=== PATIENT | female | born 1935 | race Caucasian/White ===

== ENCOUNTER → 2019-02-03 | Outpatient (CLI) | payer OTHER ==
[~2019-02-03] MED LIST: AMLO2.5T4 PO; ASCO1TAB43 PO; ASCO500T9 PO; ATOR20TA65 PO; CHOL100040 PO; DOCU240C25 PO; GENTOS OD; HYDR12.54 PO; IOHEXOL-350 75 ML VIAL IV ONE; LOSA1TAB54 PO; METF-444 PO; METO50TA18 PO; ONDA8TAB11 PO; POTA10TA14 PO; RIVA15TA PO; SENN-265 PO; SENNOSIDES PO; SIME125C92 PO; SUCR1TAB2 PO; VIT1CAPS47 PO; [UNRECOGNIZED DRUG - OTHER] PO
== END | disposition home or self-care (01) ==
LOC: RAH 07:40
PROVIDERS: ATTEND Internal Medicine Hematology & Oncology
DX: K57.30 Diverticulosis of large intestine without perforation or abscess without bleeding (principal); N94.89 Other specified conditions associated with female genital organs and menstrual cycle; I70.0 Atherosclerosis of aorta; Z90.710 Acquired absence of both cervix and uterus
CPT/HCPCS: 74178; Q9967

== ENCOUNTER 2019-06-21 10:15 | Day surgery (SDC) | payer OTHER ==
[~2019-06-21 10:15] MED LIST changes: -IOHEXOL-350 75 ML VIAL IV ONE
[2019-06-21 11:00] VITALS: BP 109/57
[2019-06-21] MEDS ORDERED: SODIUM CHLORIDE 0.9% 1000ML 1,000 ML IV ONE (12:37)
[2019-06-21 14:00] VITALS: BP 123/74
--- NOTE | 2019-06-21 14:00 | NUR ---
REPORT RECEIVED FROM DANYEL YO, ON PT TRANSFUSION OF BLOOD. PT WITH STABLE VS. NO PAIN AT IV SITE. WITH DOING WELL. FAMILY AT BEDSIDE. Addendum: 06/21/19 at 1446 by KENDALL ROGERS RN RN Amended: Links added.
[2019-06-21 14:58] VITALS: BP 120/57
--- NOTE | 2019-06-21 15:11 | NUR ---
TRANSFUSION COMPLETED. NO SIGNS OF REACTION. FAMILY WITH PT. INSTRUCTIONS GIVEN TO PT. PT DISCHARGED HOME. Addendum: 06/21/19 at 1512 by KENDALL ROGERS RN RN Amended: Links added.
== END 2019-06-21 15:15 | disposition home or self-care (01) ==
LOC: DAH 10:15
PROVIDERS: ATTEND Internal Medicine Hematology & Oncology
DX: D64.9 Anemia, unspecified (principal); C56.2 Malignant neoplasm of left ovary; I12.9 Hypertensive chronic kidney disease with stage 1 through stage 4 chronic kidney disease, or unspecified chronic kidney disease; E11.22 Type 2 diabetes mellitus with diabetic chronic kidney disease; N18.3 Chronic kidney disease, stage 3 (moderate); E78.5 Hyperlipidemia, unspecified; Z91.018 Allergy to other foods; Z98.890 Other specified postprocedural states; Z79.899 Other long term (current) drug therapy; Z82.3 Family history of stroke; Z82.49 Family history of ischemic heart disease and other diseases of the circulatory system; Z83.3 Family history of diabetes mellitus
CPT/HCPCS: 36430; 82948; A4215; A4216; A4221; A4223; A4606; A4663; J7030; P9016; 36415; 86850; 86900; 86901; 86922

== ENCOUNTER 2019-06-22 08:28 | Day surgery (SDC) | payer OTHER ==
[2019-06-22 09:00] VITALS: BP 131/61
[2019-06-22 09:15] LABS: HEMATOCRIT 26.7 % (36-48)
[2019-06-22] MEDS ORDERED: SODIUM CHLORIDE 0.9% 1000ML 1,000 ML IV ONE (12:20)
[2019-06-22 14:24] LABS: HEMATOCRIT 27.4 % (36-48)
== END 2019-06-22 14:30 | disposition home or self-care (01) ==
LOC: DAH 08:28
PROVIDERS: ATTEND Internal Medicine Hematology & Oncology
DX: D63.1 Anemia in chronic kidney disease (principal); I12.9 Hypertensive chronic kidney disease with stage 1 through stage 4 chronic kidney disease, or unspecified chronic kidney disease; E11.22 Type 2 diabetes mellitus with diabetic chronic kidney disease; N18.3 Chronic kidney disease, stage 3 (moderate); E78.5 Hyperlipidemia, unspecified; Z82.49 Family history of ischemic heart disease and other diseases of the circulatory system; Z85.43 Personal history of malignant neoplasm of ovary; Z85.828 Personal history of other malignant neoplasm of skin; Z91.018 Allergy to other foods; Z79.899 Other long term (current) drug therapy
CPT/HCPCS: 36415 ×2; 36430; 82948; 85014 ×3; 85018 ×3; 86850; 86900; 86901; 86922 ×2; A4215; A4221; A4606; A4663; J7030; P9016 ×2

== ENCOUNTER 2019-07-03 09:03 | Day surgery (SDC) | payer OTHER ==
[~2019-07-03] VITALS: Ht 154.9 cm; Wt 55.8 kg
[~2019-07-03 09:03] MED LIST changes: -ASCO1TAB43 PO; -ASCO500T9 PO; -CHOL100040 PO; -DOCU240C25 PO; -GENTOS OD; -HYDR12.54 PO; -POTA10TA14 PO; -RIVA15TA PO; -SENNOSIDES PO; +SODIUM CHLORIDE 0.9% 1000ML 1,000 ML IV ONE; -SUCR1TAB2 PO; -VIT1CAPS47 PO; -[UNRECOGNIZED DRUG - OTHER] PO
[2019-07-03 10:03] VITALS: BP 107/51
[2019-07-03] MEDS ORDERED: GABA-531 PO (10:39)
[2019-07-03] MEDS ORDERED: DEXL60CA3 PO (10:39)
[2019-07-03] MEDS ORDERED: OMEP40CA13 PO (10:39)
[2019-07-03 12:45] VITALS: BP 117/64
[2019-07-03 12:50] VITALS: BP 130/60
[2019-07-03 12:55] VITALS: BP 133/71
[2019-07-03 13:00] VITALS: BP 133/71
== END 2019-07-03 13:15 | disposition home or self-care (01) ==
LOC: DAH 09:03 → ENDO 09:03
PROVIDERS: ATTEND Internal Medicine Gastroenterology
DX: K29.50 Unspecified chronic gastritis without bleeding (principal); K27.9 Peptic ulcer, site unspecified, unspecified as acute or chronic, without hemorrhage or perforation; K44.9 Diaphragmatic hernia without obstruction or gangrene; K31.89 Other diseases of stomach and duodenum; K92.1 Melena; D64.9 Anemia, unspecified; E11.22 Type 2 diabetes mellitus with diabetic chronic kidney disease; I12.9 Hypertensive chronic kidney disease with stage 1 through stage 4 chronic kidney disease, or unspecified chronic kidney disease; N18.3 Chronic kidney disease, stage 3 (moderate); C56.9 Malignant neoplasm of unspecified ovary; E78.5 Hyperlipidemia, unspecified; M19.90 Unspecified osteoarthritis, unspecified site; Z86.73 Personal history of transient ischemic attack (TIA), and cerebral infarction without residual deficits; Z90.710 Acquired absence of both cervix and uterus; Z98.890 Other specified postprocedural states; Z79.84 Long term (current) use of oral hypoglycemic drugs
CPT/HCPCS: 43239; 82948 ×2; 88305; A4215; A4221; A4222; A4223; A4606; A4620; A4663; J7030

== ENCOUNTER → 2019-07-20 | Outpatient (CLI) | payer OTHER ==
[~2019-07-20] MED LIST changes: +DEXL60CA3 PO; +GABA-531 PO; +OMEP40CA13 PO; -SENN-265 PO; -SIME125C92 PO; -SODIUM CHLORIDE 0.9% 1000ML 1,000 ML IV ONE
== END | disposition home or self-care (01) ==
LOC: SHCH 09:19
PROVIDERS: ATTEND Internal Medicine Cardiovascular Disease
DX: I10 Essential (primary) hypertension (principal); E11.9 Type 2 diabetes mellitus without complications; Z90.710 Acquired absence of both cervix and uterus; Z90.722 Acquired absence of ovaries, bilateral; Z98.890 Other specified postprocedural states
CPT/HCPCS: 93306

== ENCOUNTER → 2019-07-24 | Outpatient (CLI) | payer OTHER ==
[~2019-07-24] VITALS: Ht 154.9 cm; Wt 57.2 kg
[~2019-07-24] MED LIST changes: +AMINOPHYLLINE 250MG/10 ML VIAL IV SCH; +REGADENOSON 0.4 MG/5 ML PF SYG IVP SCH
[2019-07-24 11:29] VITALS: BP 97/53
[2019-07-24 11:32] VITALS: BP 98/47
--- NOTE | 2019-07-24 12:37 | NUR ---
AT 1129 AMINOPHYLLINE 25MG WAS GIVEN IV PUSH OVER 60 SECONDS FOR SEVERE NAUSEA, CHEST PAIN OF 8 AND JAW PAIN POST LEXISCAN. SYMPTOMS HAD COMPLETELY RESOLVED, PER PT REPORT, APPROXIMATELY 2 MIN POST ADMINISTRATION
== END | disposition home or self-care (01) ==
LOC: SHCH 09:03
PROVIDERS: ATTEND Internal Medicine Cardiovascular Disease
DX: R06.00 Dyspnea, unspecified (principal)
CPT/HCPCS: 78452; 93017; 96374; A9500 ×2; J2785; J0280

== ENCOUNTER 2019-08-29 08:24 | Emergency (ER) | payer OTHER ==
[~2019-08-29 08:24] MED LIST changes: -AMINOPHYLLINE 250MG/10 ML VIAL IV SCH; -REGADENOSON 0.4 MG/5 ML PF SYG IVP SCH
[2019-08-29] MEDS ORDERED: ALBUMIN (HUMAN) 25% 100 ML IV ONE (09:08)
[2019-08-29] MEDS ORDERED: SODIUM CHLORIDE 0.9% 500ML 500 ML IV ONE (09:09)
[2019-08-29 09:10] LABS: BASOPHILS % (AUTO) 0.8 % (0.0-5.0); EOSINOPHILS % (AUTO) 5.7 % (0.0-8.0); HEMATOCRIT 27.8 % (36-48); MEAN CORPUSCULAR HGB CONC 30.9 g/dL (32.0-36.0); MEAN CORPUSCULAR VOLUME 100.4 fL (79-99); MONOCYTES % (AUTO) 7.6 % (3.0-13.0); NEUTROPHILS % (AUTO) 77.4 % (40.0-77.0); PLATELET COUNT (AUTO) 393 K/uL (130-400); RED BLOOD CELL COUNT(AUTO) 2.77 MIL/uL (4.00-5.50); RED CELL DISTRIBUTION WIDTH 21.6 % (11.0-15.5); WHITE BLOOD COUNT (AUTO) 7.4 K/uL (4.8-10.8)
[2019-08-29 09:23] LABS: CREATININE 1.4 mg/dL (0.5-1.5); POTASSIUM 4.8 mmol/L (3.5-5.1)
[2019-08-29 09:27] LABS: ALBUMIN 3.1 g/dL (3.5-5.0); BILIRUBIN,TOTAL 0.4 mg/dL (0.2-1.0); TOTAL PROTEIN, SERUM 6.7 g/dL (6.0-8.3)
[2019-08-29 09:33] LABS: INR 1.02 (0.85-1.15); PARTIAL THROMBOPLASTIN TIME 29.9 SEC (26.3-35.5); PROTHROMBIN TIME 10.7 SEC (9.6-11.6)
[2019-08-29] MEDS ORDERED: IOHEXOL-350 75 ML VIAL IV ONE (10:14)
== END 2019-08-29 12:07 | disposition home or self-care (01) ==
LOC: EDH 08:24
DX: R18.8 Other ascites (principal); R10.31 Right lower quadrant pain; I10 Essential (primary) hypertension; E11.9 Type 2 diabetes mellitus without complications
CPT/HCPCS: 36415; 74177; 80053; 85025; 85610; 85730; 96365; 99285; J7040; P9046; Q9967

== ENCOUNTER 2019-08-30 09:16 | Emergency (ER) | payer OTHER ==
[2019-08-30 10:17] LABS: BASOPHILS % (AUTO) 0.6 % (0.0-5.0); EOSINOPHILS % (AUTO) 4.8 % (0.0-8.0); HEMATOCRIT 29.5 % (36-48); LYMPHOCYTES % (AUTO) 7.2 % (21.0-51.0); MEAN CORPUSCULAR HEMOGLOBIN 31.3 pg (27.0-33.0); MEAN CORPUSCULAR HGB CONC 31.2 g/dL (32.0-36.0); MEAN CORPUSCULAR VOLUME 100.3 fL (79-99); MONOCYTES % (AUTO) 5.9 % (3.0-13.0); NEUTROPHILS % (AUTO) 81.2 % (40.0-77.0); NUCLEATED RED BLOOD CELLS 0.3 % (0.0-0.19); PLATELET COUNT (AUTO) 424 K/uL (130-400); RED BLOOD CELL COUNT(AUTO) 2.94 MIL/uL (4.00-5.50); RED CELL DISTRIBUTION WIDTH 21.4 % (11.0-15.5); WHITE BLOOD COUNT (AUTO) 7.9 K/uL (4.8-10.8)
[2019-08-30 10:25] LABS: CREATININE 1.2 mg/dL (0.5-1.5)
[2019-08-30 10:30] LABS: ALBUMIN 3.6 g/dL (3.5-5.0); BILIRUBIN,TOTAL 0.6 mg/dL (0.2-1.0); INR 1.03 (0.85-1.15); PARTIAL THROMBOPLASTIN TIME 30.8 SEC (26.3-35.5); PROTHROMBIN TIME 10.8 SEC (9.6-11.6); TOTAL PROTEIN, SERUM 7.2 g/dL (6.0-8.3)
--- NOTE | 2019-08-30 12:45 | NUR ---
U/S GD PARACENTESIS PROCEDURE PERFORMED BY DR Ophelia BOJORQUEZ. PUNCTURE SITE RIGHT LOWER QUADRANT. PATIENT TOLERATED PROCEDURE WELL. TOTAL REMOVED 3 LITERS OF CLEAR YELLOW FLUID. SPECIMEN SENT TO LAB. REPORT GVIE TO Domi SHAW RN AND PATIENT TRANSPORTED TO ED 17.
[2019-08-30 15:53] LABS: APPEARANCE BODY FLUID SLIGHTLY CLOUDY (CLEAR); COLOR,BODY FLUID YELLOW (LT YELLOW); SPECIMENTYPE,BODY FLUID ASCITES; TOTAL VOLUME,BODY FLUID 3000 mL
[2019-08-30 15:54] LABS: BODY FLUID RBC 878 /cu. mm.; BODY FLUID WBC 203 /cu. mm.
[2019-08-30 16:53] LABS: BF EOSINOPHIL 7 %; BF LYMPHOCYTE 17 %; BF MESOTHELIAL 38 %; BF MONOCYTE 22 %
== END 2019-08-30 14:37 | disposition home or self-care (01) ==
LOC: EDH 09:16
DX: R18.8 Other ascites (principal); E11.9 Type 2 diabetes mellitus without complications; I10 Essential (primary) hypertension; Z90.710 Acquired absence of both cervix and uterus
CPT/HCPCS: 36415; 49083; 80053; 85025; 85610; 85730; 87071; 87205; 88108; 88305; 89051; 96365; 99285; A4215

== ENCOUNTER → 2019-10-02 | Outpatient (CLI) | payer OTHER ==
[~2019-10-02] MED LIST changes: +ALBUMIN (HUMAN) 25% 100 ML IV SCH; -ONDA8TAB11 PO; +ONDA8TAB65 PO
[2019-10-02 10:40] LABS: PARTIAL THROMBOPLASTIN TIME 29.3 SEC (26.3-35.5); PROTHROMBIN TIME 10.5 SEC (9.6-11.6)
--- NOTE | 2019-10-02 11:20 | NUR ---
U/S GD PARACENTESIS PROCEDURE PERFORMED BY DR. MCLAUGHLIN. PUNCTURE SITE RIGHT LOWER QUADRANT OF ABDOMEN AND PATIENT TOLERATED PROCEDURE WELL. TOTAL REMOVED 1.2 LITERS OF CLOUDY STRAW COLORED ASCITES FLUID. END OF PROCEDURE AT 1130. CATHETER REMOVED AND DRESSING APPLIED. NO BLEEDING NOTED. PT DID NOT MEET [facility] ALBUMIN PROTOCOL. DISCHARGE INSTRUCTIONS GIVEN TO PATIENT. PATIENT VERBALIZED UNDERSTANDING. PT DISCHARGED AMBULATORY, STABLE, AAO X3 WITH NO C/O PAIN. SPECIMEN SENT TO LAB.
[2019-10-02 14:15] LABS: SPECIMENTYPE,BODY FLUID ASCITES
[2019-10-02 14:16] LABS: APPEARANCE BODY FLUID SLIGHTLY CLOUDY (CLEAR); BODY FLUID RBC 1733 /cu. mm.; BODY FLUID WBC 613 /cu. mm.; COLOR,BODY FLUID YELLOW (LT YELLOW); TOTAL VOLUME,BODY FLUID 1200 mL
[2019-10-02 14:33] LABS: BF EOSINOPHIL 2 %; BF LYMPHOCYTE 25 %; BF MESOTHELIAL 34 %; BF MONOCYTE 9 %; BF OTHER CELLS 20
== END | disposition home or self-care (01) ==
LOC: RAH 09:22
PROVIDERS: ATTEND Internal Medicine Hematology & Oncology
DX: R18.8 Other ascites (principal); R06.02 Shortness of breath; Z79.899 Other long term (current) drug therapy; Z82.49 Family history of ischemic heart disease and other diseases of the circulatory system; Z72.89 Other problems related to lifestyle; Z83.3 Family history of diabetes mellitus; Z82.5 Family history of asthma and other chronic lower respiratory diseases; Z82.3 Family history of stroke
CPT/HCPCS: 36415; 49083; 85610; 85730; 87071; 87205; 89051; A4215

== ENCOUNTER 2019-10-24 13:12 | Observation (INO) | payer OTHER ==
[~2019-10-24] VITALS: Ht 154.9 cm; Wt 54.8 kg
[~2019-10-24 13:12] MED LIST changes: -ALBUMIN (HUMAN) 25% 100 ML IV SCH
[2019-10-24 13:41] LABS: BASOPHILS % (AUTO) 0.7 % (0.0-5.0); EOSINOPHILS % (AUTO) 4.6 % (0.0-8.0); HEMATOCRIT 40.4 % (36-48); LYMPHOCYTES % (AUTO) 12.3 % (21.0-51.0); MEAN CORPUSCULAR HEMOGLOBIN 29.1 pg (27.0-33.0); MEAN CORPUSCULAR HGB CONC 30.2 g/dL (32.0-36.0); MEAN CORPUSCULAR VOLUME 96.4 fL (79-99); MONOCYTES % (AUTO) 6.9 % (3.0-13.0); NEUTROPHILS % (AUTO) 74.9 % (40.0-77.0); PLATELET COUNT (AUTO) 471 K/uL (130-400); RED BLOOD CELL COUNT(AUTO) 4.19 MIL/uL (4.00-5.50); RED CELL DISTRIBUTION WIDTH 16.9 % (11.0-15.5); WHITE BLOOD COUNT (AUTO) 10.5 K/uL (4.8-10.8)
[2019-10-24 13:50] LABS: CREATININE 1.4 mg/dL (0.5-1.5); POTASSIUM 4.5 mmol/L (3.5-5.1)
[2019-10-24 13:54] LABS: ALBUMIN 3.3 g/dL (3.5-5.0); BILIRUBIN,DIRECT 0.1 mg/dL (0.0-0.3); BILIRUBIN,TOTAL 0.3 mg/dL (0.2-1.0); TOTAL PROTEIN, SERUM 7.5 g/dL (6.0-8.3)
[2019-10-24 14:00] LABS: INR 1.02 (0.85-1.15); PARTIAL THROMBOPLASTIN TIME 28.7 SEC (26.3-35.5); PROTHROMBIN TIME 10.7 SEC (9.6-11.6)
[2019-10-24] MEDS ORDERED: SODIUM CHLORIDE 0.9% 10 ML VIAL IVP PRN (16:00)
[2019-10-24] MEDS ORDERED: FUROSEMIDE 10 MG/ML 2ML VIAL IVP SCH (16:00)
--- NOTE | 2019-10-24 16:29 | NUR ---
DCP: HOME Sw met with pt who states she lives with her Casey Pina [phone]. Pt states they are in process of selling home and moving to [place], [place] next weekend to be near family. Pt states she is independent of ADLS, no DME or in home care services. Pt drives self. PCP is Arabella Perdomo. Plan is home. Addendum: 10/24/19 at 1647 by SAVANNAH MCELROY SS Amended: Links added.
--- NOTE | 2019-10-24 23:05 | NUR ---
ADMIT PT ADMITTED TO ROOM 315, AAOX3. NOTED SOB EVEN AT REST. ADMISSION CARE DONE. PLACED ON O2 AT 2LPM VIA NC. POSITIONED COMFORTABLY IN BED WITH HOB ELEVATED. PT'S PIV IS INFILTRATED, DISCONTINUED SITE WITH CATHETER INTACT. RE-INSERTED G20 TO LFA, TOLERATED WELL. PT VERBALIZES BEING HUNGRY, PROVIDED SANDWICH TRAY, JUICE AND WATER. IN ORIENTED TO ROOM AND UNIT. IMPLEMENTED FALL PRECAUTIONS. PT VERBALIZES UNDERSTANDING. CALL LIGHT WITHIN REACH. FOR MORE CARE AND MANAGEMENT. Addendum: 10/25/19 at 0011 by CANDACE TORRES RN RN Amended: Links added.
[2019-10-24] MEDS: BUMETANIDE 0.25 MG/ML 4 ML VIAL IVP SCH (23:11)
[2019-10-25] VITALS (10 sets, daily range): BP systolic 94–121; BP diastolic 52–75
--- NOTE | 2019-10-25 00:01 | NUR ---
PAIN PT COMPLAINTS OF ABDOMINAL PAINS. NO PRN MEDS ORDERED AT THIS TIME. PAGED DR LIMON VIA ANSWERING SERVICE. AWAITING CALL BACK.
--- NOTE | 2019-10-25 00:10 | NUR ---
MD DR LIMON CALLED BACK AND REFERRED PT'S REQUEST FOR PAIN AND SLEEPING MEDICATIONS. NEW MED ORDER GIVEN, PLEASE REFER TO CPOE. WILL MEDICATE PT.
[2019-10-25] MEDS ORDERED: ZOLPIDEM TARTRATE 5 MG TAB ONE (00:13)
[2019-10-25] MEDS ORDERED: MORPHINE SULFATE 2 MG/ML 1ML SYG ONE (00:14)
[2019-10-25] MEDS ORDERED: ZOLPIDEM TARTRATE 5 MG TAB PO PRN (00:15)
[2019-10-25] MEDS ORDERED: MORPHINE SULFATE 2 MG/ML 1ML SYG IVP PRN (00:15)
--- NOTE | 2019-10-25 02:00 | NUR ---
ROUNDS PT RESTING WELL, FAIRLY ASLEEP WITH RESPIRATIONS EVEN AND UNLABORED, NO NOTED DISTRESS. KEPT UNDISTURBED FOR NOW. WILL MONITOR PT.
--- NOTE | 2019-10-25 05:54 | NUR ---
ROUNDS PT RESTING WELL, STILL FAIRLY ASLEEP. KEPT RESTED AND COMFORTABLE. FOR MORE CARE.
--- NOTE | 2019-10-25 08:47 | NUR ---
U/S GUIDED RIGHT THORACENTESIS PROCEDURE PERFORMED BY DR. Huyen MCLAUGHLIN. PUNCTURE SITE RIGHT POSTERIOR LATERAL BACK AND PATIENT TOLERATED PROCEDURE WELL. TOTAL REMOVED 1.3 LITERS OF CLOUDY YELLOW PLEURAL FLUID. END OF PROCEDURE AT 0900. CATHETER REMOVED AND DRESSING APPLIED. NO BLEEDING NOTED. POST CHEST X-RAY DONE AND READ BY DR. Huyen MCLAUGHLIN. NO PNEUMOTHORAX SEEN. CALLED REPORT TO BRO OLSEN RN. PATIENT TRANSPORTED TO 3RD FLOOR RM 315 VIA BED AT 0930. PT STABLE, AAO X3 WITH NO C/O PAIN.
[2019-10-25] MEDS: BUMETANIDE 0.25 MG/ML 4 ML VIAL IVP SCH (09:50)
--- NOTE | 2019-10-25 15:41 | NUR ---
REGARDING O2 SAT 93-95 % ON ROOM AIR PER DR. LUKE PETERSEN TO DISCHARGE PATIENT AND CONTINUE ALL HOME MEDICATIONS
--- NOTE | 2019-10-25 17:20 | NUR ---
DISCHARGE INSTRUCTIONS GIVEN TO PATIENT SPOUSE AT BEDSIDE.MADE AWARE TO KEEP FOLLOW UP SCHEDULED WITH DR. BUTLER. AWARE ALL HOME MEDICATIONS CONTINUE WITH NO CHANGE. PATIENT AT THIS TIME DENIES SOB, DENIES CHEST PAIN. OFF OF OXYGEN SATURATING 93-95% ROOMAIR. IV REMOVED. DRESSING TO RIGHT FLANK DRY AND INTACT NO BLEEDING NOTED. PATIENT WILL BE TAKEN HOME BY SPOUSE
== END 2019-10-25 17:40 | disposition home or self-care (01) ==
LOC: EDH 13:12 → EDHIP 14:45 → 3CH 22:32
PROVIDERS: ADMIT Internal Medicine Hematology & Oncology; ATTEND Internal Medicine Hematology & Oncology
DX: J91.0 Malignant pleural effusion (principal); C56.9 Malignant neoplasm of unspecified ovary; R18.0 Malignant ascites; E11.9 Type 2 diabetes mellitus without complications; I10 Essential (primary) hypertension; Z90.710 Acquired absence of both cervix and uterus; Z85.43 Personal history of malignant neoplasm of ovary; Z79.899 Other long term (current) drug therapy
CPT/HCPCS: 32555; 36415; 71045 ×2; 74176; 76700; 80048; 80076; 82948 ×3; 83690; 83880; 84484; 85025; 85610; 85730; 93005; 96374; 96375; 96376; 99285; G0378 ×11; J3490 ×2

== ENCOUNTER 2019-11-03 14:13 | Emergency (ER) | payer OTHER ==
[2019-11-03 16:28] LABS: BASOPHILS % (AUTO) 0.5 % (0.0-5.0); EOSINOPHILS % (AUTO) 5.9 % (0.0-8.0); HEMATOCRIT 39.6 % (36-48); LYMPHOCYTES % (AUTO) 11.5 % (21.0-51.0); MEAN CORPUSCULAR HEMOGLOBIN 28.8 pg (27.0-33.0); MEAN CORPUSCULAR HGB CONC 30.6 g/dL (32.0-36.0); MEAN CORPUSCULAR VOLUME 94.3 fL (79-99); MONOCYTES % (AUTO) 6.5 % (3.0-13.0); PLATELET COUNT (AUTO) 445 K/uL (130-400); RED CELL DISTRIBUTION WIDTH 16.6 % (11.0-15.5); WHITE BLOOD COUNT (AUTO) 12.3 K/uL (4.8-10.8)
--- NOTE | 2019-11-03 16:35 | NUR ---
U/S GUIDED RIGHT THORACENTESIS PROCEDURE PERFORMED BY DR. Huyen MCLAUGHLIN. PUNCTURE SITE RIGHT POSTERIOR LATERAL BACK AND PATIENT TOLERATED PROCEDURE WELL. TOTAL REMOVED 1.2 LITERS OF CLOUDY YELLOW PLEURAL FLUID. END OF PROCEDURE AT 1645. CATHETER REMOVED AND DRESSING APPLIED. NO BLEEDING NOTED. POST CHEST X-RAY DONE AND PENDING TO BE READ. CALLED REPORT TO ARIANA CHANDRA. PATIENT TRANSPORTED TO ED VIA BED AT 1710. PT STABLE, AAO X3 WITH NO C/O PAIN.
[2019-11-03 16:38] LABS: CREATININE 1.1 mg/dL (0.5-1.5); INR 1.01 (0.85-1.15); PARTIAL THROMBOPLASTIN TIME 27.2 SEC (26.3-35.5); POTASSIUM 4.8 mmol/L (3.5-5.1); PROTHROMBIN TIME 10.6 SEC (9.6-11.6)
[2019-11-03 16:42] LABS: BILIRUBIN,TOTAL 0.3 mg/dL (0.2-1.0); TOTAL PROTEIN, SERUM 7.3 g/dL (6.0-8.3)
--- NOTE | 2019-11-03 17:12 | NUR ---
POST CXR READ BY DR. MENDOZA. NEGATIVE FOR PNEUMOTHORAX.
== END 2019-11-03 17:28 | disposition home or self-care (01) ==
LOC: EDH 14:13
DX: J90 Pleural effusion, not elsewhere classified (principal); R06.02 Shortness of breath; I10 Essential (primary) hypertension; E11.40 Type 2 diabetes mellitus with diabetic neuropathy, unspecified; Z88.8 Allergy status to other drugs, medicaments and biological substances; Z90.710 Acquired absence of both cervix and uterus; Z98.890 Other specified postprocedural states
CPT/HCPCS: 32555; 36415; 71045; 71046; 80053; 85025; 85610; 85730

== ENCOUNTER → 2019-11-03 | Outpatient (CLI) | payer OTHER | END | disposition home or self-care (01) | LOC: RAH 11:42 | PROVIDERS: ATTEND Internal Medicine Hematology & Oncology | DX: J90 Pleural effusion, not elsewhere classified (principal) | CPT/HCPCS: 71046 ==